=== PATIENT | female | born 1945 | race Two or more races ===

== ENCOUNTER 2019-03-21 08:15 | Inpatient (IN) | payer OTHER ==
[~2019-03-21] VITALS: Ht 149.9 cm; Wt 56.2 kg
[2019-03-21] MEDS ORDERED: LIPITOR40 MG PO (10:05)
[2019-03-21] MEDS ORDERED: LEVOTHYROXINE25 MCG PO (10:05)
[2019-03-21] MEDS ORDERED: PROTONIX40 MG PO (10:05)
[2019-03-21] MEDS ORDERED: B-122500 MCG SL (10:06)
[2019-03-21] MEDS ORDERED: GABAPENTIN400 MG PO (10:06)
[2019-03-21] MEDS ORDERED: TOPROL XL25 MG PO (10:06)
[2019-03-21] MEDS ORDERED: CONEX TABLET1 EACH PO (10:07)
[2019-03-28] MEDS ORDERED: PERCOCET 5-3251 EACH PO (09:05)
[2019-03-28] MEDS ORDERED: DUI500 PO (09:05)
[2019-03-28] MEDS ORDERED: ELIQUIS2.5 MG PO (09:05)
== END 2019-03-28 16:30 | DRG 467 ==
LOC: SURG 03-26 05:40 → O/R 03-26 05:40 → SURG 03-26 07:00
PROVIDERS: ADMIT Orthopaedic Surgery
PROC: 0SRC0J9 Replacement of Right Knee Joint with Synthetic Substitute, Cemented, Open Approach (ICD-10-PCS; 2019-03-26)
PROC: 0MNN0ZZ Release Right Knee Bursa and Ligament, Open Approach (ICD-10-PCS; 2019-03-26)
PROC: 0SPC0JZ Removal of Synthetic Substitute from Right Knee Joint, Open Approach (ICD-10-PCS; principal; 2019-03-26 07:00)
DX: T84.032A Mechanical loosening of internal right knee prosthetic joint, initial encounter (principal); M80.051A Age-related osteoporosis with current pathological fracture, right femur, initial encounter for fracture; D62 Acute posthemorrhagic anemia; T84.018A Broken internal joint prosthesis, other site, initial encounter; M85.461 Solitary bone cyst, right tibia and fibula; M25.661 Stiffness of right knee, not elsewhere classified; E03.8 Other specified hypothyroidism; I10 Essential (primary) hypertension; M17.11 Unilateral primary osteoarthritis, right knee

== ENCOUNTER 2019-05-01 11:05 | Emergency (ER) | payer OTHER ==
[~2019-05-01] VITALS: Ht 139.7 cm; Wt 56.2 kg
[~2019-05-01 11:05] MED LIST: B-122500 MCG SL; CONEX TABLET1 EACH PO; DUI500 PO; ELIQUIS2.5 MG PO; GABAPENTIN400 MG PO; LEVOTHYROXINE25 MCG PO; LIPITOR40 MG PO; PERCOCET 5-3251 EACH PO; PROTONIX40 MG PO; TOPROL XL25 MG PO
[2019-05-01] MEDS ORDERED: NEURONTIN300 MG PO (11:26)
[2019-05-01] MEDS ORDERED: TOPROL XL25 M1 (11:27)
[2019-05-01] MEDS ORDERED: ATORVASTATIN CA40 MG (11:27)
[2019-05-01] MEDS ORDERED: PROTONIX40 MG (11:27)
[2019-05-01] MEDS ORDERED: LEVOTHYROXINE25 MCG (11:27)
[2019-05-01] MEDS ORDERED: VALACYCLOVIR500 MG (11:28)
[2019-05-01] MEDS ORDERED: VITAMIN B122500 MCG (11:28)
== END 2019-05-01 14:28 | disposition home or self-care (01) ==
LOC: ER
DX: L03.115 Cellulitis of right lower limb (principal); T81.49XA Infection following a procedure, other surgical site, initial encounter; Y83.8 Other surgical procedures as the cause of abnormal reaction of the patient, or of later complication, without mention of misadventure at the time of the procedure; Y92.89 Other specified places as the place of occurrence of the external cause

== ENCOUNTER 2025-07-07 10:37 | Outpatient (CLI) | payer OTHER ==
[~2025-07-07 10:37] MED LIST changes: +ATORVASTATIN CA40 MG; +LEVOTHYROXINE25 MCG; +NEURONTIN300 MG PO; +PROTONIX40 MG; +TOPROL XL25 M1; +VALACYCLOVIR500 MG; +VITAMIN B122500 MCG
== END 2025-07-07 10:39 | disposition home or self-care (01) ==
LOC: RAD 10:37
PROVIDERS: ATTEND Physical Medicine & Rehabilitation
DX: Z96.611 Presence of right artificial shoulder joint (principal)